=== PATIENT | male | born 1975 | race Caucasian/White ===

== ENCOUNTER → 2023-01-08 | Outpatient (CLI) | payer OTHER ==
[2023-01-09 01:06] LABS: RUBELLA AB IGG-REFLAB 1.59 index (Immune >0.99)
== END | disposition home or self-care (01) ==
LOC: MSR 10:32
PROVIDERS: ATTEND Internal Medicine
DX: Z02.1 Encounter for pre-employment examination (principal); R76.11 Nonspecific reaction to tuberculin skin test without active tuberculosis
CPT/HCPCS: 71045; 86706; 86735; 86762; 86765; 86787; 36415-L1; 36415-TC